=== PATIENT | male | born 1975 | race Caucasian/White ===

== ENCOUNTER 2016-11-27 21:48 | Inpatient (IN) | payer MEDICARE ==
[~2016-11-27] VITALS: Ht 177.8 cm; Wt 77.1 kg
[2016-11-28 02:13] LABS: RED BLOOD COUNT 4.11 M/UL (4.20-5.50); WHITE BLOOD COUNT 7.5 K/UL (4.5-11.0)
[2016-11-28 02:31] LABS: BUN/CREATININE RATIO 11 (0-10)
[2016-11-28 07:25] LABS: RED BLOOD COUNT 4.38 M/UL (4.20-5.50)
[2016-11-28 07:29] LABS: WHITE BLOOD COUNT 10.2 K/UL (4.5-11.0)
[2016-11-28 07:50] LABS: BUN/CREATININE RATIO 9 (0-10)
[2016-11-29 05:19] LABS: BUN/CREATININE RATIO 9 (0-10)
--- NOTE | 2016-11-29 17:55 | NUR ---
CURRENTLY PATIENT IS WALKING AROUND WITH FAMILY MEMBER. PAIN MEDICATION GIVEN 3 TIMES TODAY. IV PATIENT WITH FLUIDS RUNNING. DRESSING TO RIGHT 2nd DIGIT IS DRY AND INTACT. WILL CONTINUE TO MONITOR.
[2016-11-30 05:14] LABS: BUN/CREATININE RATIO 9 (0-10)
[2016-11-30] MEDS ORDERED: VIBRAMYCIN100 MG PO (15:17)
[2016-11-30] MEDS ORDERED: PERCOCET 10-321 EACH PO (15:18)
[2017-02-20] MEDS ORDERED: PERCOCET 5-3251 EACH PO (09:24)
[2017-02-20] MEDS ORDERED: ZYVOX600 MG PO (14:47)
== END 2016-11-30 17:50 | disposition home or self-care (01) | DRG 513 ==
LOC: ER1 21:48 → MED SURG 4 11-28 03:51 → ZEROF 11-28 03:51 → MED SURG 4 11-28 06:07
PROVIDERS: Internal Medicine; Orthopaedic Surgery; Physician Assistant; ADMIT Internal Medicine
PROC: 0LQ70ZZ Repair Right Hand Tendon, Open Approach (ICD-10-PCS; principal; 2016-11-28 13:45)
PROC: 3E10X8Z Irrigation of Skin and Mucous Membranes using Irrigating Substance (ICD-10-PCS; principal; 2016-11-28 13:45)
DX: S56.423A Laceration of extensor muscle, fascia and tendon of right middle finger at forearm level, initial encounter (principal); L02.511 Cutaneous abscess of right hand; L03.011 Cellulitis of right finger; B95.62 Methicillin resistant Staphylococcus aureus infection as the cause of diseases classified elsewhere; D64.9 Anemia, unspecified; F17.210 Nicotine dependence, cigarettes, uncomplicated; Z72.89 Other problems related to lifestyle; W26.0XXA Contact with knife, initial encounter; Y93.89 Activity, other specified; Y92.59 Other trade areas as the place of occurrence of the external cause
CPT/HCPCS: 36415; 73130; 80048; 80053; 80202; 82607; 82746; 83605; 85025; 85610; 85730; 86140; 87040; 87070; 87077; 87186; 87205; 90471; 90715; 96365; 96375; 99284; J0690; J1100; J1956; J2250; J2270; J2405; J2765; J3010; J3370; J7050; J7070; J7120

== ENCOUNTER 2021-02-03 17:30 | Inpatient (IN) | payer OTHER ==
[~2021-02-03] VITALS: Ht 177.8 cm; Wt 70.4 kg
[~2021-02-03 17:30] MED LIST: PERCOCET 10-321 EACH PO; PERCOCET 5-3251 EACH PO; VIBRAMYCIN100 MG PO; ZYVOX600 MG PO
[2021-02-03 18:11] LABS: HEMOGLOBIN 14.3 gm/dl (14.0-17.5); RED BLOOD COUNT 4.73 M/UL (4.20-5.50); WHITE BLOOD COUNT 11.5 K/UL (4.5-11.0)
[2021-02-03 18:43] LABS: BUN/CREATININE RATIO 12 (0-10)
[2021-02-04 06:00] LABS: HEMOGLOBIN 14.6 gm/dl (14.0-17.5); RED BLOOD COUNT 4.91 M/UL (4.20-5.50); WHITE BLOOD COUNT 13.3 K/UL (4.5-11.0)
[2021-02-04 06:41] LABS: BUN/CREATININE RATIO 13 (0-10)
[2021-02-05 04:36] LABS: BUN/CREATININE RATIO 23 (0-10)
[2021-02-06 04:29] LABS: WHITE BLOOD COUNT 16.5 K/UL (4.5-11.0)
[2021-02-06 04:53] LABS: HEMOGLOBIN 16.7 gm/dl (14.0-17.5); RED BLOOD COUNT 5.6 M/UL (4.20-5.50)
[2021-02-06 05:06] LABS: BUN/CREATININE RATIO 29 (0-10)
[2021-02-07 04:13] LABS: HEMOGLOBIN 15.6 gm/dl (14.0-17.5); RED BLOOD COUNT 5.23 M/UL (4.20-5.50); WHITE BLOOD COUNT 12.5 K/UL (4.5-11.0)
[2021-02-07 04:51] LABS: BUN/CREATININE RATIO 29 (0-10)
[2021-02-08 05:01] LABS: HEMOGLOBIN 14.4 gm/dl (14.0-17.5); RED BLOOD COUNT 4.79 M/UL (4.20-5.50); WHITE BLOOD COUNT 9.9 K/UL (4.5-11.0)
[2021-02-08 05:43] LABS: BUN/CREATININE RATIO 22 (0-10)
[2021-02-09 04:10] LABS: HBSAG SCREEN Negative (Negative); HEP A AB, IGM Negative (Negative); HEP B CORE AB, IGM Negative (Negative); HEP C VIRUS AB <0.1 (0.0-0.9)
[2021-02-09 09:07] LABS: HEMOGLOBIN 15.9 gm/dl (14.0-17.5); RED BLOOD COUNT 5.3 M/UL (4.20-5.50); WHITE BLOOD COUNT 9.3 K/UL (4.5-11.0)
[2021-02-09 09:34] LABS: BUN/CREATININE RATIO 16 (0-10)
[2021-02-10 04:29] LABS: HEMOGLOBIN 16.1 gm/dl (14.0-17.5); RED BLOOD COUNT 5.26 M/UL (4.20-5.50); WHITE BLOOD COUNT 10.4 K/UL (4.5-11.0)
[2021-02-10 04:54] LABS: BUN/CREATININE RATIO 19 (0-10)
[2021-02-10] MEDS ORDERED: ALDACTONE 25MG25 MG PO (11:59)
[2021-02-10] MEDS ORDERED: ASPIRIN EC81 MG PO (11:59)
[2021-02-10] MEDS ORDERED: COZAAR 25MG TAB25 MG PO (11:59)
[2021-02-10] MEDS ORDERED: FUROSEMIDE40 MG PO (11:59)
[2021-02-10] MEDS ORDERED: LOPRESSOR 50 MG50 MG PO (11:59)
[2021-02-10] MEDS ORDERED: KLOR-CON 1010 MEQ PO (12:10)
[2021-02-11 04:33] LABS: HEMOGLOBIN 16.1 gm/dl (14.0-17.5); RED BLOOD COUNT 5.34 M/UL (4.20-5.50); WHITE BLOOD COUNT 10.3 K/UL (4.5-11.0)
[2021-02-11 04:35] LABS: BUN/CREATININE RATIO 19 (0-10)
[2021-02-11] MEDS ORDERED: PROTONIX 40 MG40 M1 PO (19:50)
== END 2021-02-11 19:55 | disposition home or self-care (01) | DRG 287 ==
LOC: ER1 17:30 → CDU 19:31 → M/S 19:31
PROVIDERS: Family Medicine; Internal Medicine; Internal Medicine Cardiovascular Disease; Physician Assistant; ADMIT Internal Medicine
PROC: B2111ZZ Fluoroscopy of Multiple Coronary Arteries using Low Osmolar Contrast (ICD-10-PCS; 2021-02-04)
PROC: B24BZZ4 Ultrasonography of Heart with Aorta, Transesophageal (ICD-10-PCS; 2021-02-05)
PROC: 4A023N7 Measurement of Cardiac Sampling and Pressure, Left Heart, Percutaneous Approach (ICD-10-PCS; principal; 2021-02-08)
DX: I11.0 Hypertensive heart disease with heart failure (principal); I47.1 Supraventricular tachycardia; E87.2 Acidosis; E87.1 Hypo-osmolality and hyponatremia; I47.2 Ventricular tachycardia; I24.8 Other forms of acute ischemic heart disease; I50.43 Acute on chronic combined systolic (congestive) and diastolic (congestive) heart failure; I42.8 Other cardiomyopathies; I25.119 Atherosclerotic heart disease of native coronary artery with unspecified angina pectoris; Z20.822 Contact with and (suspected) exposure to COVID-19; T50.2X5A Adverse effect of carbonic-anhydrase inhibitors, benzothiadiazides and other diuretics, initial encounter; F17.210 Nicotine dependence, cigarettes, uncomplicated; F12.10 Cannabis abuse, uncomplicated; F10.10 Alcohol abuse, uncomplicated; F11.10 Opioid abuse, uncomplicated; K76.0 Fatty (change of) liver, not elsewhere classified; I27.20 Pulmonary hypertension, unspecified; F15.10 Other stimulant abuse, uncomplicated; Z79.82 Long term (current) use of aspirin; Z79.01 Long term (current) use of anticoagulants; Z91.14 Patient's other noncompliance with medication regimen; Z82.49 Family history of ischemic heart disease and other diseases of the circulatory system; Z90.49 Acquired absence of other specified parts of digestive tract
CPT/HCPCS: ECHO; 0240U; 36415; 36600; 71045; 76705; 80048; 80053; 80074; 80307; 82550; 82553; 82803; 83036; 83605; 83690; 83735; 83874; 83880; 84484; 85025; 85027; 85347; 85610; 93005; 93306; 94664; 94760; 96374; 96375; 96376; 99152; 99285; C1769; C1894; G0378; J1644; J1650; J1940; J2250; J2270; J2405; J3010; J7040; Q9967